=== PATIENT | male | born 1980 | race Caucasian/White ===

== ENCOUNTER 2018-04-08 10:25 | Emergency (ER) | payer OTHER, SELFPAY ==
[2018-04-08 10:27] VITALS: BP 122/81; PULSE 77; RESP 16; TEMP 36.7; O2SAT 98; BMI 31.4
--- NOTE | 2018-04-08 10:51 | ED.VISSUMM ---
- ER Visit Summary Date of Service: 04/08/18 Chief Complaint: Passed out History of Present Illness: The patient is a 38 M. Patient states he worked all day yesterday was at home is getting ready to have dinner and he had a syncopal event. Denies any head injury. Pt hit his arm on the way down and bruised his upper arm. Said he does not remember ever passing out before. Before it occurred he denied any headache, chest pain, shortness of breath or abdominal pain. He denies any nausea, vomiting, diarrhea, fever or melena. He said since the event though he has been somewhat lightheaded and feeling like things take longer to do. As if he is in slow motion. 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 Physical Examination: Vital signs are stable and afebrile. Blood pressure 122/81. Pulse ox 98% room air no signs of hypoxia. H EENT exam is unremarkable. Neck is nontender no lymphadenopathy. Full range of motion. Lungs clear to auscultation bilaterally. Heart regular rate and rhythm no murmur. Chest wall nontender. Abdomen soft nontender. Normal bowel sounds no peritoneal signs. Elbow girdle intact. Moving all 4 extremities. Neurovascular intact. He is soft tissue bruising on his left upper bicep and tricep region. There is no bony deformity. 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 Dorsi plantar flexion intact. Full range of motion of both upper and lower extremities. Back is nontender without trauma. No spine tenderness. Scalp has no areas of trauma, tenderness or contusions. Neurologic exam is normal. NIH is 0. He is awake alert and oriented. Moving all extremities. Normal motor and sensory. Fingertip to nose and heel mock are both within normal limits. Test Results: CBC normal. BMP normal. EKG sinus bradycardia rate of 59 with no acute abnormalities. CT of the brain is read by the radiologist and reviewed by me shows no acute abnormality. Emergency Department Course and Treatment: She had a syncopal event for really no apparent read. It did not appear to be vasovagal. He also is having some lightheadedness since that time. I will do screening labs. Treatment Plan: Repeat exam the patient is doing well at 1142. Exam remains normal. He and I discussed all test results and he is comfortable being discharged home. He has no primary care physician and will be referred to Dr. Jeffrey Moseley for follow-up as needed. Disposition: Discharge Impression: Acute syncope of uncertain etiology Left upper arm contusion This note was generated with Mind[employer] dictation software. It may contain incorrect words, spelling, and punctuation that were not noted in review of the chart prior to signing ED Disposition - Plan for ED Patient: Chief Complaint: General Illness Referrals: NOT,DEFINED [Primary Care Provider] -
--- NOTE | 2018-04-08 10:55 | ED.DCSUM_ITS ---
- ER Visit Summary Date of Service: 04/08/18 Chief Complaint: Passed out History of Present Illness: The patient is a 38 M. Patient states he worked all day yesterday was at home is getting ready to have dinner and he had a syncopal event. Denies any head injury. Pt hit his arm on the way down and bruised his upper arm. Said he does not remember ever passing out before. Before it occurred he denied any headache, chest pain, shortness of breath or abdominal pain. He denies any nausea, vomiting, diarrhea, fever or melena. He said since the event though he has been somewhat lightheaded and feeling like things take longer to do. As if he is in slow motion. 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 Physical Examination: Vital signs are stable and afebrile. Blood pressure 122/ 81. Pulse ox 98% room air no signs of hypoxia. H EENT exam is unremarkable. Neck is nontender no lymphadenopathy. Full range of motion. Lungs clear to auscultation bilaterally. Heart regular rate and rhythm no murmur. Chest wall nontender. Abdomen soft nontender. Normal bowel sounds no peritoneal signs. Elbow girdle intact. Moving all 4 extremities. Neurovascular intact. He is soft tissue bruising on his left upper bicep and tricep region. There is no bony deformity. 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 Dorsi plantar flexion intact. Full range of motion of both upper and lower extremities. Back is nontender without trauma. No spine tenderness. Scalp has no areas of trauma, tenderness or contusions. Neurologic exam is normal. NIH is 0. He is awake alert and oriented. Moving all extremities. Normal motor and sensory. Fingertip to nose and heel mock are both within normal limits. Test Results: CBC normal. BMP normal. EKG sinus bradycardia rate of 59 with no acute abnormalities. CT of the brain is read by the radiologist and reviewed by me shows no acute abnormality. Emergency Department Course and Treatment: She had a syncopal event for really no apparent read. It did not appear to be vasovagal. He also is having some lightheadedness since that time. I will do screening labs. Treatment Plan: Repeat exam the patient is doing well at 1142. Exam remains normal. He and I discussed all test results and he is comfortable being discharged home. He has no primary care physician and will be referred to Dr. Jeffrey Moseley for follow-up as needed. Disposition: Discharge Impression: Acute syncope of uncertain etiology Left upper arm contusion This note was generated with [employer] dictation software. It may contain incorrect words, spelling, and punctuation that were not noted in review of the chart prior to signing ED Disposition - Plan for ED Patient: Chief Complaint: General Illness Referrals: NOT,DEFINED [Primary Care Provider] -
[2018-04-08 11:10] LABS: Absolute Lymphocyte Count 1.46 X10^3/ul (0.83-4.51); Absolute Neutrophil Count 6.6 X10^3/uL (2.0-7.7); Basophil# 0.02 X10^3/uL; Basophil% 0.2 % (0-1); Eosinophil# 0.06 X10^3/uL; Eosinophils% 0.7 % (0-5); Hematocrit 43.3 % (40-54); Hemoglobin 14.7 g/dl (13.0-16.5); Lymphocyte # 1.46 X10^3/ul (4.0); Lymphocyte % 16.7 % (19-41); Mean Corp Hgb Conc 33.9 g/gl (32-36); Mean Corpuscular Hgb 30.2 pg (27.0-32.0); Mean Corpuscular Volume 88.9 fL (80-94); Mean Platelet Vol. 9.2 fl (6.2-12.0); Monocyte# 0.57 X10^3/uL; Monocyte% 6.5 % (0-10); Neutrophil # 6.62 X10^3/uL (2.7-7.7); Neutrophil % 75.8 % (47-70); Platelet Count 235 K/mm3 (150-450); RBC Distribution Width CV 12.6 % (11.6-14.6); Red Blood Count 4.87 M/mm3 (4.6-6.2); White Blood Count 8.7 K/mm3 (4.4-11.0)
[2018-04-08 11:11] LABS: POSITIVE COUNT NO; POSITIVE DIFFERENTIAL NO; POSITIVE MORPHOLOGY NO
[2018-04-08 11:17] LABS: BUN 13 mg/dL (7-18); Creatinine, Serum 1.19 mg/dL (0.70-1.30); Glucose 110 mg/dL (74-106)
[2018-04-08 11:18] LABS: Anion Gap 9 (5-15); BUN/Creat Ratio 10.9 RATIO (10-20); Calcium,Total 8.4 mg/dL (8.5-10.1); Chloride 103 mmol/L (98-107); EST Glomerular Filtration Rate 72 mL/min (>60); Est Glom Filt Rate - Afr Amer 87 mL/min (>60); Estimated Creatinine Clearance 77.15 ml/min; Potassium 3.8 mmol/L (3.5-5.1); Sodium Level 138 mmol/L (136-145)
--- NOTE | 2018-04-08 11:45 | ED.DEP ---
ED Disposition - Plan for ED Patient: Disposition: Home or Assisted Living Chief Complaint: General Illness Instructions: Causes of Syncope Referrals: Dyllan Chin MD [STAFF PHYSICIAN] - As soon as possible Additional Instructions: Your labs and CAT scan were unremarkable today. Follow-up with Dr. Jeffrey Chin to obtain a primary care physician. Return to the ER if feeling worse or if you pass out again.
[2018-04-08 11:55] VITALS: BP 111/89; BP 128/71; BP 141/85; PULSE 60; PULSE 72; PULSE 85
[2018-04-08 12:05] VITALS: BP 111/89; PULSE 85; RESP 14; O2SAT 96
== END 2018-04-08 12:18 | disposition home or self-care (01) ==
LOC: ED 12:12
PROVIDERS: Emergency Provider Emergency Medicine
DX: R55 Syncope and collapse (principal); S40.022A Contusion of left upper arm, initial encounter; W45.8XXA Other foreign body or object entering through skin, initial encounter; Y93.9 Activity, unspecified; Y92.009 Unspecified place in unspecified non-institutional (private) residence as the place of occurrence of the external cause; Y99.9 Unspecified external cause status; F17.200 Nicotine dependence, unspecified, uncomplicated
CPT/HCPCS: 70450; 80048; 85025; 93005; 99285; A4216

== ENCOUNTER 2019-02-27 13:40 | Observation (INO) | payer OTHER, SELFPAY ==
[2019-02-27 13:41] VITALS: BP 139/86; PULSE 55; RESP 18; TEMP 36.1; O2SAT 98; BMI 28.2
[2019-02-27 13:51] VITALS: PULSE 44; RESP 14; O2SAT 100
--- NOTE | 2019-02-27 13:55 | EKG12_ITS ---
Test Reason : CP Blood Pressure : / mmHG Vent. Rate : 056 BPM Atrial Rate : 056 BPM P-R Int : 128 ms QRS Dur : 092 ms QT Int : 424 ms P-R-T Axes : 035 003 006 degrees QTc Int : 409 ms Sinus bradycardia with marked sinus arrhythmia Septal infarct (cited on or before 08-APR-2018) Abnormal ECG Confirmed by ISABEL JIMENES, BERTHA ([id number]), book or script editor HODAN BOSTON ([id number]) on 03/01/2019 1:56:32 PM Referred By: Liz Marinelli Confirmed By:BERTHA HALL MD
--- NOTE | 2019-02-27 13:55 | RAD_ITS ---
STUDY: X-RAY CHEST REASON FOR EXAM: Male, 38 years old. Chest pain TECHNIQUE: Frontal view of the chest COMPARISON: None. FINDINGS: The lungs are clear. There are no pleural effusions. There is no pneumothorax. The heart is normal in size. The visualized osseous structures are within normal limits. RAD/Chest 1 View (Portable) IMPRESSION: No acute thoracic pathology. Electronically Signed: Noe Love, at 14:32 EDT Tel , Service support ,
--- NOTE | 2019-02-27 13:57 | ED.VIS.GEN ---
History of Present Illness <Verna Mccormick - Last Filed: 02/27/19 14:22> Informant: Patient Onset: Today Context: Gradual Onset Timing: Continuous Quality: burning/sharp Location: chest/epigastrium Current Severity: Severe Maximum Severity: Severe Worsened by: nothing Relieved by: nothing Associated Symptoms: chest pain, abdominal pain, nausea vomiting diarrhea Narrative: 38-year-old male history of peptic ulcer disease presents to the emergency department with chest pain, abdominal pain, nausea vomiting and diarrhea. Patient states he had a proximally 6 drinks last night woke up this morning with chest pain and abdominal pain and has had multiple episodes of vomiting and one episode of loose stool. He denies any hematemesis or coffee-ground emesis, melena or hematochezia. He has not been lightheaded or dizzy. No shortness of breath or diaphoresis. No fevers. He has not had any exertional symptoms. He has no leg pain or swelling. He is a daily smoker but denies any other history of hypertension, hyperlipidemia, diabetes or heart disease. He does not know his family history. He has been depressed lately he has not been able to see his kids as much as he anticipated when he and his were approximately 6 months ago. He denies thoughts of suicide or homicide. Prior similar symptoms: No Recent Illness/Hospitalization: No <Benedict Carrillo - Last Filed: 02/27/19 16:43> Chief Complaint: Chest Pain Past Medical History <Verna Mccormick - Last Filed: 02/27/19 14:22> Prior records reviewed: Yes Past Medical History: - - Peptic ulcer disease Lives: Roommate Smoking Status: Current every day smoker Alcohol: Occasional Drugs: None <Benedict Carrillo - Last Filed: 02/27/19 16:43> - Allergies and Home Meds Allergies/Adverse Reactions: Allergies No Known Allergies Allergy (Verified 02/27/19 13:40) Primary Care Physician: Care Physician,No Primary [Primary Care Provider] - Review of Systems All systems negative except as indicated General: Denies: Chills, Fever Cardiovascular: Reports: Chest pain Gastrointestinal: Reports: Abdominal pain, Nausea, Vomiting, Diarrhea <Benedict Carrillo - Last Filed: 02/27/19 16:43> Physical Exam Vital Signs/Narrative: Vital Signs Temp Pulse Resp BP Pulse Ox 02/27/19 13:51 44 L 14 100 02/27/19 13:41 96.9 F L 55 L 18 139/86 H 98 <Verna Mccormick - Last Filed: 02/27/19 14:22> Vital Signs/Narrative: Vital Signs Temp Pulse Resp BP Pulse Ox 02/27/19 13:51 44 L 14 100 02/27/19 13:41 96.9 F L 55 L 18 139/86 H 98 Inital Vital Signs reviewed: Yes General: Well nourished, Well developed, No Acute Distress Head: Normocephalic, Atraumatic Eyes: Perrl, EOMI ENT: Moist mucous membranes Neck: Supple, Nontender Cardiovascular: Regular rate, Regular rhythm, No murmurs Respiratory: No distress, CTA bilaterally, Chest nontender Abdomen: Soft, Nondistended, Normal bowel sounds, No masses, Tender. Negative for: Guarding, Rebound tenderness Back: Nontender Extremities: Nontender, No edema Skin: Normal color, No rash Neurological: Alert, Oriented x3 <Benedict Carrillo - Last Filed: 02/27/19 16:43> Diagnostic/Tx/Re-eval - Medical Decision Making Dr. Mccormick dictating seen with the PA agree with history and physical exam, patient complains of epigastric pain after heavy alcohol consumption last night he has no history of SD PE or DVT no history of GI ailments except for reflux no history of pancreatitis Head neck chest unremarkable there is a vague discomfort in the epigastric area regarding organomegaly at this time for implant therapy work-up please see full chart <Verna Mccormick - Last Filed: 02/27/19 14:22> Chest X-Ray - ED: 1 View, Read by ED Physician, Read by Radiologist, No Acute Disease - EKG Initial EKG Interpretation: Sinus Rhythm, No Acute Injury Pattern Prior: Unchanged - Medical Decision Making EKG was sinus bradycardia rate of [address] segment or T wave abnormalities. no ectopy and normal intervals. Patient given IV fluids and IV Phenergan. Patient's laboratory work-up was remarkable for very mild elevation of his liver function tests with a white blood cell count of 22. Troponin is negative. Lipase is within normal limits. Chest x-ray is unremarkable. Due to the elevated white blood cell count and the patient's continued abdominal pain a CT scan was performed which demonstrated diffuse bowel underdistention with concern for colitis. Because of the patient's elevated white blood cell count with abdominal pain and likely colitis on CAT scan we did give the patient Cipro and Flagyl. he was made n.p.o. and he will be admitted. I spoke with Dr. Taylor th call for e hospitalist. <Benedict Carrillo - Last Filed: 02/27/19 16:43> ED Disposition <Verna Mccormick - Last Filed: 02/27/19 14:22> <Benedict Carrillo - Last Filed: 02/27/19 16:43> - Plan for ED Patient: Disposition: Acute Care Hospital [facility] Diagnosis: Colitis, Abdominal pain, Nausea and vomiting, History of gastritis Referrals: Care Physician,No Primary [Primary Care Provider] -
[2019-02-27] MEDS: Ondansetron 4 MG/2 ML Vial IV (14:04)
[2019-02-27] MEDS: 0.9% Normal Saline 1,000 ML 1000 ML IV (14:04)
[2019-02-27 14:16] LABS: Absolute Lymphocyte Count 0.73 X10^3/ul (0.83-4.51); Absolute Neutrophil Count 20.6 X10^3/uL (2.0-7.7); Basophil# 0.02 X10^3/uL; Basophil% 0.1 % (0-1); Eosinophil# 0.01 X10^3/uL; Hematocrit 44.8 % (40-54); Hemoglobin 15.9 g/dl (13.0-16.5); Lymphocyte # 0.73 X10^3/ul (4.0); Lymphocyte % 3.3 % (19-41); Mean Corp Hgb Conc 35.5 g/gl (32-36); Mean Corpuscular Hgb 30.8 pg (27.0-32.0); Mean Corpuscular Volume 86.7 fL (80-94); Mean Platelet Vol. 9.9 fl (6.2-12.0); Monocyte# 0.73 X10^3/uL; Monocyte% 3.3 % (0-10); Neutrophil # 20.59 X10^3/uL (2.7-7.7); Neutrophil % 92.9 % (47-70); Platelet Count 295 K/mm3 (150-450); RBC Distribution Width CV 12.5 % (11.6-14.6); RBC Distribution Width SD 39.3 fl (35.1-43.9); Red Blood Count 5.17 M/mm3 (4.6-6.2); White Blood Count 22.2 K/mm3 (4.4-11.0)
[2019-02-27 14:17] LABS: Differential Indicated SCAN CRITERIA MET; POSITIVE COUNT NO; POSITIVE DIFFERENTIAL YES; POSITIVE MORPHOLOGY NO
[2019-02-27 14:33] LABS: ALB/GLOB Ratio 1.2 RATIO (0.9-2.4); AST(SGOT) 45 U/L (15-37); Alanine Aminotransfer ALT/SGPT 85 U/L (16-61); Albumin, Serum 3.8 g/dL (3.2-5.0); Alkaline Phosphatase 53 U/L (45-117); Anion Gap 8 (5-15); BUN 10 mg/dL (7-18); BUN/Creat Ratio 8.9 RATIO (10-20); Calcium,Total 8.5 mg/dL (8.5-10.1); Chloride 103 mmol/L (98-107); Creatinine, Serum 1.12 mg/dL (0.70-1.30); EST Glomerular Filtration Rate 77 mL/min (>60); Est Glom Filt Rate - Afr Amer 93 mL/min (>60); Estimated Creatinine Clearance 79.12 ml/min; Globulin 3.1 g/dL (2.2-4.2); Glucose 114 mg/dL (74-106); Lipase 91 U/L (73-393); Potassium 4.2 mmol/L (3.5-5.1); Protein, Total 6.9 g/dL (6.4-8.2); Sodium Level 139 mmol/L (136-145)
[2019-02-27 14:35] LABS: Differential Comment SCANNED
--- NOTE | 2019-02-27 15:16 | CT_ITS ---
STUDY: CT ABDOMEN AND PELVIS WITH CONTRAST REASON FOR EXAM: Male, 38 years old. Nausea and vomiting. RADIATION DOSAGE (If Supplied By Facility): CTDIvol = ( 23.05 ) mGy, DLP = ( 880.48 ) mGycm TECHNIQUE: Transaxial images were obtained from the dome of the diaphragm to the symphysis pubis without oral contrast. 100ML ml of Isovue 300 contrast was administered. Sagittal and coronal images were reconstructed. Individualized dose optimization techniques were used for this CT. COMPARISON: None. FINDINGS: The visualized lung bases are clear. The visualized portions of the heart and pericardium are within normal limits. There are no calcified gallstones present. There is periportal edema noted in the liver. There are no focal hepatic lesions. The spleen is normal in size. The pancreas is within normal limits. The adrenal glands are within normal limits. There are no renal or ureteral stones. There is no hydronephrosis. There are no focal renal lesions. Normal visualized stomach. There is no bowel obstruction. There is bowel wall prominence throughout the colon which is likely due to under distention. The appendix is visualized and appears normal. The aorta is normal in caliber. There is no abdominal or pelvic free air, free fluid, fluid collection or lymphadenopathy. There are no destructive osseous lesions. There is bilateral spondylolysis at L5. CT/Abdomen/Pelvis W IV Cont ONLY IMPRESSION: Periportal edema noted in the liver. This is likely due to overhydration. Bowel wall prominence throughout the colon which is likely due to underdistention. However, mild colitis cannot be excluded. No bowel obstruction. Normal appendix. Normal kidneys. No hydronephrosis. Electronically Signed: Noe Love, at 16:12 EDT Tel , Service support ,
[2019-02-27] MEDS: proMETHazine 25 MG/ML Syringe 12.5 MG IV (15:50)
[2019-02-27 15:52] VITALS: BP 158/102; PULSE 46; RESP 18; TEMP 36.5; O2SAT 98
--- NOTE | 2019-02-27 16:44 | HP.PCM_ITS ---
Problem List (1) Gastritis Status: Acute (2) Colitis Status: Suspected (3) Abdominal pain Status: Acute (4) Nausea and vomiting Status: Acute History of Present Illness Date of Admission: 02/27/19 Chief Complaint: Epigastric pain, nausea and vomiting. The patient is a 38 year old M with no significant past medical history prese nted to the emergency room because of epigastric pain, nausea and vomiting. Symptoms started this morning around 7 AM, awakening him from sleep, epigastric pain, described as pressure-like pain, 7 out of 10 severity, nonradiating, associated with nausea and vomiting and without aggravating or relieving factors. Patient stated that he has been having some stress because of family issues recently, couple of weeks ago and yesterday, he went to see his kids. He came back home and he started drinking and he drunk 5-6 beers without any food. He slipped and this morning, he woke up with this pain with nausea and vomiting. He denied shortness of breath, palpitation, sweating, syncope or presyncope. He denied lower abdominal pain. He reported couple times of diarrhea, loose stool without blood. He denies fever or chills. He admitted smoking marijuana occasionally and last time he smoked marijuana was more than 3 days ago. He denied use of other recreational drugs. In the emergency department, he was afebrile, bradycardic, heart rate has been in the 50s, blood pressure stable, pulse ox was 98% on room air. Routine blood work was remarkable for leukocytosis with neutrophilia, otherwise normal. LFT revealed minimally elevated ALT and AST likely because of alcohol drinking. Lipase was normal. EKG revealed sinus bradycardia, normal WA interval, normal QRS, normal QTC, no acute ischemic changes. Chest x-ray revealed no acute findings. CT scan abdomen and pelvis with IV contrast revealed prominent bowel loops throughout the colon, no other acute findings. He is being admitted for acute gastritis and suspected colitis. Past Medical History Allergies No Known Allergies Allergy (Verified 02/27/19 13:40) Home Medications: Ambulatory Orders Medication Instructions Recorded NK 04/08/18 Surgical History: noncontributory Psychiatric History: No pertinent psych hx Lives: With Family, Roommate Smoking Status: Current every day smoker Tobacco Use: Cigarettes Alcohol: Occasional Drugs: Marijuana - *Family History Maternal History Items: Hypertension Paternal History Items: Hypertension Review of Systems Constitutional: Reports: Anorexia, Weakness. Denies: Chills, Fever Eyes: Denies: Blurred vision, Double vision, Drainage, Redness HEENT: Denies: Difficulty Hearing, Ear Pain, Eye Pain, Nasal Congestion, Sore Th roat Cardiovascular: Reports: Chest Pain - Epigastric pain., Chest Pressure. Denies: Heaviness, Light Headedness, Palpitations, Syncope Respiratory: Denies: Cough, Pleuritic Pain, Shortness of Breath, Sputum production, Wheezing Gastrointestinal: Reports: Abdominal Pain, Diarrhea, Nausea, Vomiting. Denies: Constipation Genitourinary: Denies: Dysuria, Frequency, Hematuria Musculoskeletal: Denies: Arm Pain, Back Pain, Foot Pain Skin: Denies: Dryness, Rash Neurological: Denies: Balance problems, Blurred vision, Double vision, Change in Speech, Slurred speech, Confusion, Headaches, Incoordination Psychiatric: Denies: Anxiety, Depression Endocrine: Denies: Change in Body Habitus, Polydipsia, Polyuria VTE Information - Inpt Only VTE Present on Admission: No VTE Mechan Device Prophylaxis: None VTE Pharm Prophylaxis ordered?: No Patient Problems: Active and Suspected Problems Gastritis (Acute) Colitis (Suspected) Abdominal pain (Acute) Nausea and vomiting (Acute) - Physical Exam General: Alert, Oriented x3, Cooperative, No apparent distress HEENT: Atraumatic, PERRLA, EOMI, Normocephalic Oral: Moist Mucosa, No Gingival or Mucosal Lesions/ Ulcerations Neck: Supple, No JVD, Negative Carotid Bruits, Trachea Midline, Thyroid Normal Size and Texture Lungs: Clear to auscultation, Normal air movement, No rhonchi, No wheeze, No rales Cardiovascular: Regular rate, Regular Rhythm, Normal S1, Normal S2, PMI Normal, Bradycardic Abdomen: Bowel Sounds Present, Soft, Non Tender, Non-Distended, No Hepato- splenomegaly Extremities: No clubbing, No cyanosis, No edema Skin: No rashes, No breakdown Lymphatic: No Cervical, Supraclavicular, or Inguinal Adenopathy Neurological: Cranial nerves II-XII grossly intact, Motor Exam 5/5 strength throughout Psych/Mental Status: Normal Affect, Appropriate, Alert and oriented to time, place, person, mood and affect Vital Signs Temp Pulse Resp BP Pulse Ox 97.7 F L 46 L 18 158/102 H 98 02/27/19 15:52 02/27/19 15:52 02/27/19 15:52 02/27/19 15:52 02/27/19 15:52 Oxygen Delivery Method Room Air Weight: 175 lb Body Mass Index (BMI) 28.2 Laboratory Tests Past 24 Hrs 02/27/19 02/27/19 14:10 14:10 WBC 22.2 H RBC 5.17 Hgb 15.9 Hct 44.8 MCV 86.7 MCH 30.8 MCHC 35.5 RDW 12.5 RDW Differential 39.3 Plt Count 295 MPV 9.9 Immature Gran % (Auto) 0.400 Neut % (Auto) 92.9 H Lymph % (Auto) 3.3 L [place] % (Auto) 3.3 Eos % (Auto) 0.0 Baso % (Auto) 0.1 Absolute Neuts (auto) 20.6 H Absolute Lymphs (auto) 0.73 L Total Counted Not Reportable Differential Comment SCANNED Sodium 139 Potassium 4.2 Chloride 103 Carbon Dioxide 28.0 Anion Gap 8 BUN 10 Creatinine 1.12 Estim Creat Clear Calc 79.12 Est GFR (MDRD) Af Amer 93 Est GFR (MDRD) Non-Af 77 BUN/Creatinine Ratio 8.9 L Glucose 114 H Calcium 8.5 Total Bilirubin 0.50 AST 45 H ALT 85 H Alkaline Phosphatase 53 Troponin I < 0.015 Total Protein 6.9 Albumin 3.8 Globulin 3.1 Albumin/Globulin Ratio 1.2 Lipase 91 Clinical Impression(s) from Imaging Studies Chest X-Ray 02/27/19 13:55 IMPRESSION: No acute thoracic pathology. Electronically Signed: Noe Love, at 14:32 EDT Tel , Service support , Abdomen/Pelvis CT 02/27/19 15:16 IMPRESSION: Periportal edema noted in the liver. This is likely due to overhydration. Bowel wall prominence throughout the colon which is likely due to underdistention. However, mild colitis cannot be excluded. No bowel obstruction. Normal appendix. Normal kidneys. No hydronephrosis. Electronically Signed: Noe Love, at 16:12 EDT Tel , Service support , Assessment/Plan All Active Problems Gastritis (Acute) Abdominal pain (Acute) Nausea and vomiting (Acute) This is a 38 years old male patient presented to the emergency room because of chest/abdominal pain, that is epigastric pain with nausea and vomiting as well as mild diarrhea, found to have acute gastritis, suspected colitis and is being admitted for treatment. #1 acute gastritis/suspected colitis: At this time, I doubt full-blown acute colitis but it cannot be ruled out. CT scan reviewed. Patient does have leukocytosis and probably reactive. patient has been drinking last night without eating any food. His symptoms are likely due to gastritis. EKG revealed sinus bradycardia, otherwise no ischemic changes. Troponin is negative. He has no risk factors for CAD. Plan: Admit to [facility] floor for observation, telemetry monitoring, serial cardiac enzymes, clear liquids and advance diet as scheduled, IV fluids, IV Pepcid twice daily, IV Zofran and Phenergan as needed for nausea vomiting, Mylanta as needed, check TSH, repeat CBC and CMP tomorrow morning. At this time, no indication to do more cardiac work-up unless cardiac enzymes came back abnormal. I did not see any indication to start IV antibiotics. #2 DVT prophylaxis: Low risk patient, no prophylaxis indicated. This note was generated with [employer] software. It may contain incorrect words, spelling, and punctuation that were not noted in checking the note before signing. Code Visit OBSV E&M: [id number] Initial observation care L3
[2019-02-27] MEDS: metroNIDAZOLE 500 MG/100 ML BAG 100 MG IV (17:17)
[2019-02-27 17:22] VITALS: BP 122/75; PULSE 60; RESP 20; O2SAT 98
[2019-02-27 17:42] VITALS: BP 122/75; PULSE 55; RESP 16; O2SAT 99
[2019-02-27 18:20] VITALS: BP 131/86; PULSE 53; RESP 16; TEMP 37.4; O2SAT 98; BMI 28.2
[2019-02-27] MEDS: 0.9% Normal Saline 1,000 ML 125 ML IV (18:40)
[2019-02-27] MEDS: proMETHazine 25 MG/ML Syringe 6.25 MG IV (21:04)
[2019-02-27] MEDS: 0.9% NaCl Peripheral Flush Adult/Peds IV (21:07)
[2019-02-27] MEDS: Morphine 2 MG/ML Syringe 1 MG IV (22:03)
[2019-02-28 01:00] VITALS: BP 112/57; PULSE 52; RESP 18; TEMP 37.2; O2SAT 98
[2019-02-28] MEDS: 0.9% Normal Saline 1,000 ML 125 ML IV (03:03)
--- NOTE | 2019-02-28 03:40 | NURSING ---
During evening, pt was wanting something to eat, he was tolerating liquids okay but says his stomach was hurting because of no food, Continued liquid diet, at 0300 he was able to tolerate 2 eliel crackers and and pack of short bread cookies. Advised to go slowly. Advanced his diet per physician order.
[2019-02-28 06:18] LABS: Absolute Lymphocyte Count 2.31 X10^3/ul (0.83-4.51); Absolute Neutrophil Count 9.2 X10^3/uL (2.0-7.7); Basophil# 0.01 X10^3/uL; Basophil% 0.1 % (0-1); Eosinophil# 0.03 X10^3/uL; Eosinophils% 0.2 % (0-5); Hematocrit 40.2 % (40-54); Hemoglobin 13.5 g/dl (13.0-16.5); Lymphocyte # 2.31 X10^3/ul (4.0); Lymphocyte % 17.6 % (19-41); Mean Corp Hgb Conc 33.6 g/gl (32-36); Mean Corpuscular Hgb 29.9 pg (27.0-32.0); Mean Corpuscular Volume 88.9 fL (80-94); Mean Platelet Vol. 10.4 fl (6.2-12.0); Monocyte% 11.4 % (0-10); Neutrophil # 9.24 X10^3/uL (2.7-7.7); Neutrophil % 70.5 % (47-70); Platelet Count 231 K/mm3 (150-450); RBC Distribution Width CV 12.5 % (11.6-14.6); RBC Distribution Width SD 40.3 fl (35.1-43.9); Red Blood Count 4.52 M/mm3 (4.6-6.2); White Blood Count 13.1 K/mm3 (4.4-11.0)
[2019-02-28 06:21] LABS: POSITIVE COUNT NO; POSITIVE DIFFERENTIAL NO; POSITIVE MORPHOLOGY NO
[2019-02-28 06:35] LABS: ALB/GLOB Ratio 1.2 RATIO (0.9-2.4); AST(SGOT) 21 U/L (15-37); Alanine Aminotransfer ALT/SGPT 54 U/L (16-61); Albumin, Serum 2.8 g/dL (3.2-5.0); Alkaline Phosphatase 44 U/L (45-117); Anion Gap 6 (5-15); BUN 12 mg/dL (7-18); BUN/Creat Ratio 12.1 RATIO (10-20); Calcium,Total 7.9 mg/dL (8.5-10.1); Chloride 107 mmol/L (98-107); Creatinine, Serum 0.99 mg/dL (0.70-1.30); EST Glomerular Filtration Rate 89 mL/min (>60); Est Glom Filt Rate - Afr Amer 107 mL/min (>60); Estimated Creatinine Clearance 89.51 ml/min; Globulin 2.4 g/dL (2.2-4.2); Glucose 109 mg/dL (74-106); Lipase 67 U/L (73-393); Potassium 3.7 mmol/L (3.5-5.1); Protein, Total 5.2 g/dL (6.4-8.2); Sodium Level 141 mmol/L (136-145)
[2019-02-28 06:46] VITALS: BP 133/66; PULSE 55; RESP 18; TEMP 37.2; O2SAT 98
[2019-02-28 07:06] VITALS: O2SAT 97
--- NOTE | 2019-02-28 07:19 | PN_ITS ---
Patient Problems: Active and Suspected Problems Colitis (Acute) History of gastritis (Acute) Gastritis (Acute) Colitis (Suspected) Abdominal pain (Acute) Nausea and vomiting (Acute) Subjective: The patient is a 38-year-old male with no significant past medical history presented to the emergency department at [facility] on 02/27/2019 complaining of epigastric pain, nausea/vomiting and loose stool. He was afebrile, bradycardic with a heart rate in the 50s and is stable blood pressure. Routine blood pressure revealed a white blood cell count of 22,000 with 93% neutrophils. Hemoglobin was 15.9 platelets were within normal limits. CMP was remarkable for an AST of 45 with an ALT of 85. Troponin was less than 0.015. Lipase was within normal limits. Chest x-ray showed no infiltrates, pleural effusions or pulmonary vascular congestion. CT scan of the abdomen and pelvis showed periportal edema noted in the liver. There was bowel wall prominence throughout the colon which was likely due to under distention. There was no evidence of bowel obstruction. He was admitted to the hospital with a dx of gastritis/enteritis and started on clear liquids and IV Pepcid. Antiemetics were ordered. One day after admission when I entered his room he was having a cheeseburger and gray pie for breakfast and had no abdominal pain, no emesis and c/o mild nausea but, was trying to fight through it. All events of the past 24 hours of been reviewed. Temperature has ranged from 96.9-99.3 since admission. He is bradycardic with a heart rate in the 50s and blood pressure is stable. He is maintaining an appropriate oxygen saturation on room air. All lab was personally reviewed. White blood cell count today is 13.1 with 70% neutrophils. Hemoglobin and platelets remain within normal limits. BMP is unremarkable. ALT and AST are now normal. Serial cardiac enzymes were negative. - Physical Exam Vital Signs Temp Pulse Resp BP Pulse Ox 99 F 55 L 18 133/66 H 97 02/28/19 06:46 02/28/19 06:46 02/28/19 06:46 02/28/19 06:46 02/28/19 07:06 Oxygen Delivery Method Room Air Weight: 175 lb 0.012 oz Body Mass Index (BMI) 28.2 Intake and Output for Last 24 Hours 02/26/19 02/27/19 02/28/19 23:59 23:59 23:59 Intake Total 1855 Balance 1855 Laboratory Tests Past 24 Hrs 02/27/19 02/27/19 02/27/19 14:10 14:10 18:35 WBC 22.2 H RBC 5.17 Hgb 15.9 Hct 44.8 MCV 86.7 MCH 30.8 MCHC 35.5 RDW 12.5 RDW Differential 39.3 Plt Count 295 MPV 9.9 Immature Gran % (Auto) 0.400 Neut % (Auto) 92.9 H Lymph % (Auto) 3.3 L [place] % (Auto) 3.3 Eos % (Auto) 0.0 Baso % (Auto) 0.1 Absolute Neuts (auto) 20.6 H Absolute Lymphs (auto) 0.73 L Total Counted Not Reportable Differential Comment SCANNED Sodium 139 Potassium 4.2 Chloride 103 Carbon Dioxide 28.0 Anion Gap 8 BUN 10 Creatinine 1.12 Estim Creat Clear Calc 79.12 Est GFR (MDRD) Af Amer 93 Est GFR (MDRD) Non-Af 77 BUN/Creatinine Ratio 8.9 L Glucose 114 H Calcium 8.5 Total Bilirubin 0.50 AST 45 H ALT 85 H Alkaline Phosphatase 53 Troponin I < 0.015 < 0.015 Total Protein 6.9 Albumin 3.8 Globulin 3.1 Albumin/Globulin Ratio 1.2 Lipase 91 02/27/19 02/28/19 02/28/19 22:50 05:36 05:36 WBC 13.1 H RBC 4.52 L Hgb 13.5 Hct 40.2 MCV 88.9 MCH 29.9 MCHC 33.6 RDW 12.5 RDW Differential 40.3 Plt Count 231 MPV 10.4 Immature Gran % (Auto) 0.200 Neut % (Auto) 70.5 H Lymph % (Auto) 17.6 L [place] % (Auto) 11.4 H Eos % (Auto) 0.2 Baso % (Auto) 0.1 Absolute Neuts (auto) 9.2 H Absolute Lymphs (auto) 2.31 Total Counted Not Reportable Differential Comment Sodium 141 Potassium 3.7 Chloride 107 Carbon Dioxide 28.0 Anion Gap 6 BUN 12 Creatinine 0.99 Estim Creat Clear Calc 89.51 Est GFR (MDRD) Af Amer 107 Est GFR (MDRD) Non-Af 89 BUN/Creatinine Ratio 12.1 Glucose 109 H Calcium 7.9 L Total Bilirubin 0.70 AST 21 ALT 54 Alkaline Phosphatase 44 L Troponin I < 0.015 Total Protein 5.2 L Albumin 2.8 L Globulin 2.4 Albumin/Globulin Ratio 1.2 Lipase 67 L Medical Necessity - Tobacco Use Smoking Status: Former smoker Tobacco Use: Cigarettes Assessment/Plan All Active Problems Colitis (Acute) History of gastritis (Acute) Gastritis (Acute) Abdominal pain (Acute) Nausea and vomiting (Acute)
--- NOTE | 2019-02-28 08:47 | DCINST_ITS ---
- Discharge Diagnoses Current Active Problems: Current Active and Chronic Problems Colitis (Acute) History of gastritis (Acute) Gastritis (Acute) Abdominal pain (Acute) Nausea and vomiting (Acute) You will use the following diet at home:: Other - I recommend you stick to a low fat bland diet for the next few days and let your stomach settle. Caffeine increases the acid secretion in the stomach so lay off caffeine for the next few days. Your food should be the consistency of: Regular Your liquids should be the consistency of: Regular/Thin Discharge Activity: Return to Normal Activity Return to work on:: 03/01/19 Call your doctor if you observe: Fever of 101 or Higher, - - nausea/vomiting/diarrhea/abdominal pain Instructions: Understanding Gastritis, Treating Gastritis Additional Instructions: I have given you a prescription for a medication called Pepcid. This medication decreases the acid production in the stomach and allows the lining of the stomach to heal. You will take it twice a day for the next 1 month. No smoking, caffeine or alcohol for at least a week. Allergies/Adverse Reactions: Allergies No Known Allergies Allergy (Verified 02/27/19 13:40) Medications to take at Discharge Famotidine [Pepcid] 20 mg PO BID #60 tab 02/28/19 The following prescriptions were given: Famotidine [Pepcid] 20 mg PO BID #60 tab Prescription Printed Primary Care Physician: Care Physician,No Primary [Primary Care Provider] - Please follow up with your Primary Care Physician in: 1 week Test Results: Test results from this visit will be discussed in further detail at your follow- up appointment, if applicable. Proposed Discharge Date: 02/28/19
--- NOTE | 2019-02-28 08:54 | DS.PCM_ITS ---
Discharge Date and Diagnosis - Problem List Patient Problems: Active and Suspected Problems Colitis (Acute) History of gastritis (Acute) Gastritis (Acute) Colitis (Suspected) Abdominal pain (Acute) Nausea and vomiting (Acute) Date of Admission: 02/27/19 Date of Discharge: 02/28/19 - Primary Discharge Diagnosis Active and Suspected Problems Colitis (Acute) - ruled out Gastritis (Acute) - suspect due to stress and ETOH Abdominal pain (Acute) Nausea and vomiting (Acute) Leukocytosis - stress response, no sign infection Mild transaminitis-resolved Hospital Course and Treatment Summary of Care Provided: The patient is a 38-year-old male with no significant past medical history who presented to the emergency department at [facility] on 02/27/2019 complaining of epigastric pain, nausea/vomiting and loose stool. He was afebrile, bradycardic with a heart rate in the 50s and a stable blood pressure. Routine blood pressure revealed a white blood cell count of 22,000 with 93% neutrophils. Hemoglobin was 15.9 platelets were within normal limits. CMP was remarkable for an AST of 45 with an ALT of 85. Troponin was less than 0.015. Lipase was within normal limits. Chest x-ray showed no infiltrates, pleural effusions or pulmonary vascular congestion. CT scan of the abdomen and pelvis showed periportal edema noted in the liver. There was bowel wall prominence throughout the colon which was likely due to under distention. There was no evidence of bowel obstruction. He was admitted to the hospital with a dx of gastritis/enteritis and started on clear liquids and IV Pepcid. Antiemetics were ordered. One day after admission when I entered his room he was having a cheeseburger and gray pie for breakfast and had no abdominal pain, no emesis and c/o mild nausea but, was trying to fight through it. He felt well and wanted to go home. He was discharged home and was given a RX for Pepcid 20 mg and will take 1 BID for the next month. He was instructed to avoid ETOH, caffeine and nicotine for at least a week and to stick to a low fat bland diet for a few days and then advance as tolerated. Prior to DC he was given a list of local PCP's accepting new patients but, he has [employer] insurance and he could also be seen at the [facility]. PHYSICAL EXAM: GENERAL: alert, oriented X 3, Cooperative, NAD ORAL: moist mucosa, no mucosal lesions NECK: No JVD, supple, trachea midline LUNGS: CTA, symmetric chest expansion HEART: RRR, Normal S1 and S2, no rub, no gallop ABDOMEN: soft, NT, ND, BS present, no guarding with palpation EXTREMITIES: no edema, no cyanosis, no calf tenderness SKIN: No rashes, no breakdown NEUROLOGIC: no focal neurologic deficits PSYCH: appropriate, normal affect, pleasant This note was generated with [employer] dictation software. It may contain incorrect words, spelling, and punctuation that were not noted in checking the note before signing. Patient Problems: Active and Suspected Problems Colitis (Acute) History of gastritis (Acute) Gastritis (Acute) Colitis (Suspected) Abdominal pain (Acute) Nausea and vomiting (Acute) - Physical Exam Vital Signs Temp Pulse Resp BP Pulse Ox 99 F 55 L 18 133/66 H 97 02/28/19 06:46 02/28/19 06:46 02/28/19 06:46 02/28/19 06:46 02/28/19 07:06 Oxygen Delivery Method Room Air Weight: 175 lb 0.012 oz Body Mass Index (BMI) 28.2 Intake and Output for Last 24 Hours 02/26/19 02/27/19 02/28/19 23:59 23:59 23:59 Intake Total 1856 / 1856 Balance 1856 / 185 Laboratory Tests Past 24 Hrs 02/27/19 02/27/19 02/27/19 14:10 14:10 18:35 WBC 22.2 H RBC 5.17 Hgb 15.9 Hct 44.8 MCV 86.7 MCH 30.8 MCHC 35.5 RDW 12.5 RDW Differential 39.3 Plt Count 295 MPV 9.9 Immature Gran % (Auto) 0.400 Neut % (Auto) 92.9 H Lymph % (Auto) 3.3 L [place] % (Auto) 3.3 Eos % (Auto) 0.0 Baso % (Auto) 0.1 Absolute Neuts (auto) 20.6 H Absolute Lymphs (auto) 0.73 L Total Counted Not Reportable Differential Comment SCANNED Sodium 139 Potassium 4.2 Chloride 103 Carbon Dioxide 28.0 Anion Gap 8 BUN 10 Creatinine 1.12 Estim Creat Clear Calc 79.12 Est GFR (MDRD) Af Amer 93 Est GFR (MDRD) Non-Af 77 BUN/Creatinine Ratio 8.9 L Glucose 114 H Calcium 8.5 Total Bilirubin 0.50 AST 45 H ALT 85 H Alkaline Phosphatase 53 Troponin I < 0.015 < 0.015 Total Protein 6.9 Albumin 3.8 Globulin 3.1 Albumin/Globulin Ratio 1.2 Lipase 91 02/27/19 02/28/19 02/28/19 22:50 05:36 05:36 WBC 13.1 H RBC 4.52 L Hgb 13.5 Hct 40.2 MCV 88.9 MCH 29.9 MCHC 33.6 RDW 12.5 RDW Differential 40.3 Plt Count 231 MPV 10.4 Immature Gran % (Auto) 0.200 Neut % (Auto) 70.5 H Lymph % (Auto) 17.6 L [place] % (Auto) 11.4 H Eos % (Auto) 0.2 Baso % (Auto) 0.1 Absolute Neuts (auto) 9.2 H Absolute Lymphs (auto) 2.31 Total Counted Not Reportable Differential Comment Sodium 141 Potassium 3.7 Chloride 107 Carbon Dioxide 28.0 Anion Gap 6 BUN 12 Creatinine 0.99 Estim Creat Clear Calc 89.51 Est GFR (MDRD) Af Amer 107 Est GFR (MDRD) Non-Af 89 BUN/Creatinine Ratio 12.1 Glucose 109 H Calcium 7.9 L Total Bilirubin 0.70 AST 21 ALT 54 Alkaline Phosphatase 44 L Troponin I < 0.015 Total Protein 5.2 L Albumin 2.8 L Globulin 2.4 Albumin/Globulin Ratio 1.2 Lipase 67 L Discharge Activity: Return to Normal Activity Return to work on:: 03/01/19 Call your doctor if you observe: Fever of 101 or Higher, - - nausea/vomiting/diarrhea/abdominal pain Home Medications: Medications to take at Discharge Famotidine [Pepcid] 20 mg PO BID #60 tab 02/28/19 Following Prescrptions Were Given to Patient: Famotidine [Pepcid] 20 mg PO BID #60 tab Prescription Printed Primary Care Physician: Care Physician,No Primary [Primary Care Provider] - Please follow up with your Primary Care Physician in: 1 week Patient Instructions: Treating Gastritis, Understanding Gastritis Disposition: Home Minutes spent on discharge:: 25 Patient Condition:: Good Medical Necessity - Tobacco Use Smoking Status: Former smoker Tobacco Use: Cigarettes Meaningful Use Info Meaningful Use Diagnoses (Choose all that apply): None applicable Code Visit OBSV E&M: 85935 Observation care discharge
[2019-02-28 08:58] VITALS: BP 124/75; PULSE 50; RESP 18; TEMP 37.2; O2SAT 99
== END 2019-02-28 09:25 | disposition home or self-care (01) ==
LOC: ED 16:44 → MS3 18:13
PROVIDERS: Admitting Provider Hospitalist; Emergency Provider Physician Assistant Medical; Referring Provider Hospitalist; Visit Provider Internal Medicine
DX: K52.9 Noninfective gastroenteritis and colitis, unspecified (principal); Z87.11 Personal history of peptic ulcer disease; F17.210 Nicotine dependence, cigarettes, uncomplicated; K29.00 Acute gastritis without bleeding
CPT/HCPCS: 36415; 71045; 74177; 80053; 83690; 84484; 85025; 93005; 96361; 96365; 96375; 96376; 99218; 99285; J7030; J7050; Q9967; A4216; G0378; J0744; J2405; J3490

== ENCOUNTER 2023-06-02 07:35 | Day surgery (SDC) | payer OTHER, SELFPAY ==
[2023-06-02] VITALS (7 sets, daily range): BP systolic 108–120; BP diastolic 69–82; PULSE 49–63; RESP 16–18; TEMP 36.3–36.5; O2SAT 96–100; BMI 31.4
[2023-06-02] MEDS: Lactated Ringers 1,000 ML 15 ML IV (08:02)
--- NOTE | 2023-06-02 09:13 | PCM.HP.BLA ---
History and Physical Intake Vital Signs 03/24/2310:23 Height 5 ft 5 in Weight: 190 lb BMI 31.6 BP 142/81 H Blood Pressure Location Rt brachial Position Sitting Respiration 18 Intake Visit Reasons: DISCUSS POSSIBLE EGD Chief Complaint: EGD [employer] Super[employer] Required: No Is patient in pain?: Yes (epigastric) Allergies No Known Allergies Allergy (Verified 05/18/23 08:33) Medications omeprazole 20 mg capsule,delayed release 20 mg PO DAILY 03/24/23 [History Confirmed 03/24/23] PFSH Medical History Abdominal pain Colitis Colitis Gastritis History of gastritis Nausea and vomiting Social History Smoking Status: Former smoker alcohol intake: current substance use type: former substance user HPI HPI HPI: Patient is a 43-year-old male who was seen here over a month ago. He was started on a PPI and Carafate. He reports he has been taking these but he is not experiencing any relief. He is still having epigastric pain. ROS General General: Yes fatigue; No weight change, appetite, colon cancer, breast cancer or weakness HEENT HEENT: No difficulty swallowing, eye injury, eye surgery, swollen glands or hoarseness Endo Endocrine: No thyroid disease, diabetes mellitus, thyroid cancer, Hair loss, heat intolerance or cold intolerance Skin Skin: Yes rash; No changing moles Breast Breast: No left breast lump, right breast lump, nipple discharge, breast pain, abnormal mammogram, abnormal US or breast enlargement Musc Musculoskeletal: No back problems, arthritis, rheumatoid arthritis, gout or joint pain Cardio Cardiovascular: No murmur, pacemaker, heart disease, atrial fibrillation, high blood pressure, heart attack, heart stent, palpitations, shortness of breat with exertion or chest pain Psych Psychiatric: Yes depression and anxiety; No hearing voices Resp Respiratory: No shortness of breath, No sleep apnea, No cough, No COPD, No asthma, No emphysema and No wheezing Gastro Gastrointestinal: Yes abdominal pain, No nausea or vomiting, Yes diarrhea, No constipation, No blood in stool, No acid reflux, No hemorrhoids, No ulcers, No gallbladder problem and Yes black,tarry stools Rambo Hematologic: No blood thinners, No blood disorders, No bleeding, No anemia and No blood clots Neuro Neurologic: No system reviewed and no additional complaints, except as documented, No as per HPI, No abnormal gait, No abnormal hearing, No abnormal movements, No abnormal speech, No behavioral changes, No burning sensations, No confusion, No convulsions, No disequilibrium, No dizziness, No localized weakness, No frequent falls, No headache(s), No lack of coordination, No loss of vision, No memory loss, Yes numbness, No other visual disturbances, No radicular pain, No restless legs, No sensory deficit, No syncope, Yes tingling, No tremor(s), No weakness and No other Exam Const General: cooperative Orientation: alert and oriented x3 HENMT Head: normal to inspection Neck Neck: normal visual inspection and full ROM Chest Chest palpation & inspection: normal inspection of the chest Resp Effort & Inspection: normal respiratory effort Auscultation: clear to auscultation bilaterally Cardio Rate: regular rate Rhythm: regular rhythm GI Inspection: non-distended Palpation: soft and nontender Skin General: no rashes or lesions noted Neuro General: patient alert and patient oriented x3 Extrem General: full ROM Psych Appearance: grossly normal Mental Status: mental status grossly normal Assessment and Plan Assessment and Plan (1) Abdominal pain: Status: Acute Qualifiers: Abdominal location: epigastric Qualified Code(s): R10.13 - Epigastric pain Plan: The patient has been having epigastric pain and he was started on a PPI with no effect after 6 weeks of taking it. I will perform an EGD. If that is normal then I will move onto a CAT scan. I explained endoscopy in detail to the patient. I explained the risks including but not limited to stroke or heart attack with anesthesia, perforation of the GI tract, bleeding, infection. I explained that any of these could necessitate further emergency surgery. The patient understands and all questions were answered sufficiently. The patient wishes to proceed with procedure. Benedict Lara MD Pager: [facility] [address] [place] [address], [address] [place] [address] Office: I have examined the patient and the H&P has been reviewed. There are no clinical changes since date of exam.
--- NOTE | 2023-06-02 09:34 | OP.EGD_ITS ---
Patient Name: Michael Dias Procedure Date: 06/02/2023 9:20 AM Date of : 1980 Age: 43 Procedure: Upper GI endoscopy Indications: Epigastric abdominal pain Providers: Benedict Lara MD Medicines: Monitored Anesthesia Care Patient Profile: This is a 43 year old male. Refer to note in patient chart for documentation of history and physical. Complications: No immediate complications. Procedure: Pre-Anesthesia Assessment: - Prior to the procedure, a History and Physical was performed, and patient medications and allergies were reviewed. The patient's tolerance of previous anesthesia was also reviewed. The risks and benefits of the procedure and the sedation options and risks were discussed with the patient. All questions were answered, and informed consent was obtained. Prior Anticoagulants: The patient has taken no anticoagulant or antiplatelet agents. After reviewing the risks and benefits, the patient was deemed in satisfactory condition to undergo the procedure. After obtaining informed consent, the endoscope was passed under direct vision. Throughout the procedure, the patient's blood pressure, pulse, and oxygen saturations were monitored continuously. The gastroscope was introduced through the mouth, and advanced to the fourth part of duodenum. The upper GI endoscopy was accomplished without difficulty. The patient tolerated the procedure well. Scope In: 9:30:25 AM Scope Out: 9:31:24 AM Total Procedure Duration Time 0 hours 0 minutes 59 seconds Findings: The esophagus was normal. The stomach was normal. The examined duodenum was normal. Impression: - Normal esophagus. - Normal stomach. - Normal examined duodenum. - No specimens collected. Recommendation: - Discharge patient to home. - Resume previous diet. - Continue present medications. - Perform CT scan (computed tomography) of the abdomen with contrast at appointment to be scheduled. Procedure Code(s): --- Professional --- 97823, Esophagogastroduodenoscopy, flexible, transoral; diagnostic, including collection of specimen(s) by brushing or washing, when performed (separate procedure) Diagnosis Code(s): --- Professional --- R10.13, Epigastric pain CPT copyright 2021 [employer]. All rights reserved. The codes documented in this report are preliminary and upon serology teacher review may be revised to meet current compliance requirements. Benedict Lara MD 06/02/2023 9:34:19 AM This report has been signed electronically. Number of Addenda: 0 Note Initiated On: 06/02/2023 9:20 AM
--- NOTE | 2023-06-02 09:35 | OP.CCLET_ITS ---
06/02/2023 No Primary Care Physician Re : Upper GI endoscopy procedure for Michael Dias Dear Care Physician This procedure was performed on Friday, June 02, 2023. My impressions and recommendations are as follows: Impressions : - Normal esophagus. - Normal stomach. - Normal examined duodenum. - No specimens collected. Recommendations : - Discharge patient to home. - Resume previous diet. - Continue present medications. - Perform CT scan (computed tomography) of the abdomen with contrast at appointment to be scheduled. My findings are described in the full procedure note, which is enclosed. If I can be of further assistance, please feel free to contact me at Doctor phone number(s): , Work: . Sincerely, Benedict Lara MD 06/02/2023 9:34:19 AM This report has been signed electronically.
== END 2023-06-02 10:13 | disposition home or self-care (01) ==
LOC: EN 07:36 → AC 07:42
PROVIDERS: Visit Provider Surgery
PROC: 0DJ08ZZ Inspection of Upper Intestinal Tract, Via Natural or Artificial Opening Endoscopic (ICD-10-PCS; CPT 43235; principal; 2023-06-02 09:10)
DX: R10.13 Epigastric pain (principal); Z87.891 Personal history of nicotine dependence; K29.70 Gastritis, unspecified, without bleeding; K52.9 Noninfective gastroenteritis and colitis, unspecified; Z87.19 Personal history of other diseases of the digestive system; K21.9 Gastro-esophageal reflux disease without esophagitis
CPT/HCPCS: 43235; J7120; J2405

== ENCOUNTER → 2023-06-16 | Outpatient (CLI) | payer OTHER, SELFPAY ==
--- NOTE | 2023-06-16 06:40 | CT_ITS ---
STUDY: CT ABDOMEN AND PELVIS WITH CONTRAST REASON FOR EXAM: Male, 43 years old. Abdominal pain RADIATION DOSAGE (If Supplied By Facility): CTDIvol = ( 12.05 ) mGy, DLP = ( 936.22 ) mGycm TECHNIQUE: Oral and amp 100mL [id number]-300 was administered. Transaxial images were obtained from the dome of the diaphragm to the symphysis pubis. Multiplanar coronal and sagittal images were reformatted. Individualized Dose Optimization Techniques Were Used For This CT. COMPARISON: Prior study dated: 02/27/2019 FINDINGS: The visualized lung bases are unremarkable. The visualized portions of the heart are within normal limits. Normal liver. Normal gallbladder and extrahepatic biliary system. Normal spleen. Normal pancreas. Normal bilateral adrenal glands. There is a possible very small hiatal hernia. Normal in caliber small bowel loops. Fecal retention. No evidence of acute diverticulitis. The appendix is visualized and appears normal. Normal abdominal aorta. No retroperitoneal adenopathy. Normal right kidney. Normal left kidney. Normal urinary bladder. Slightly prominent prostate. Very small umbilical hernia containing fat. Bilateral spondylolysis at L5 without spondylolisthesis. CT/Abdomen/Pelvis WITH Contrast IMPRESSION: No focal acute inflammatory process. Electronically Signed: Fabio Centeno MD at 9:03 EDT ,
== END | disposition home or self-care (01) ==
LOC: CT 06:40
PROVIDERS: Referring Provider Surgery; Visit Provider Surgery
DX: R10.13 Epigastric pain (principal)
CPT/HCPCS: 74177; 94660; Q9967